=== PATIENT | female | born 1960 | race Caucasian/White ===

== ENCOUNTER 2018-11-20 16:24 | Emergency (ER) | payer MEDICAID ==
[~2018-11-20] VITALS: Ht 160 cm; Wt 81.4 kg
[2018-11-20 17:08] LABS: BASOPHILS # (AUTO) 0.1 X10'3 (0-0.2); BASOPHILS % (AUTO) 0.8 % (0-1); EOSINOPHILS # (AUTO) 0.5 X10'3 (0-0.9); HEMOGLOBIN 14.8 g/dl (12.0-16.0); LYMPHOCYTES # (AUTO) 1.3 X10'3 (1.1-4.8); MEAN CORPUSCULAR HGB CONC 33.7 g/dL (33.0-36.5); MEAN CORPUSCULAR VOLUME 86.1 FL (78-98); MEAN PLATELET VOLUME 7.6 FL (7.4-10.4); MONOCYTES # (AUTO) 0.6 X10'3 (0-0.9); MONOCYTES % (AUTO) 8.5 % (2-12); NEUTROPHILS # (AUTO) 4.4 X10'3 (1.8-7.7); NEUTROPHILS % (AUTO) 64.7 % (42-75); PLATELET COUNT 282 X10'3 (140-440); RED CELL DISTRIBUTION WIDTH 13.9 % (11.5-14.5); WHITE BLOOD COUNT 6.8 X10'3 (4.5-11.0)
--- NOTE | 2018-11-20 17:20 | NUR ---
[employer] OFFICER TARYN DEXTER LEFT PATIENT IN ROOM 20
[2018-11-20 17:21] LABS: ALANINE AMINOTRANSFERASE 39 U/L (12-78); ALBUMIN 4.3 G/DL (3.4-5.0); ALKALINE PHOSPHATASE 93 IU/L (46-116); ANION GAP 11 (8-16); ASPARTATE AMINO TRANSFERASE 20 U/L (10-37); BILIRUBIN,TOTAL 0.4 MG/DL (0.1-1.0); BLOOD UREA NITROGEN 17 MG/DL (7-18); BUN/CREATININE RATIO 19.3 (6.6-38.0); CALCIUM 10.1 MG/DL (8.5-10.1); CHLORIDE 96 MMOL/L (99-107); CREATININE 0.88 MG/DL (0.40-0.90); GLUCOSE 393 MG/DL (70-104); POTASSIUM 3.8 MMOL/L (3.5-5.1); SODIUM 137 MMOL/L (135-145); TOTAL CARBON DIOXIDE 29.6 MMOL/L (24-32); TOTAL PROTEIN 8.4 G/DL (6.4-8.2); eGFR 66 ML/MIN
[2018-11-20 17:30] LABS: ETHANOL < 0.010 GM/DL (0.0-0.010)
[2018-11-20 18:07] LABS: URINE AMPHETAMINE SCREEN NEGATIVE (Neg); URINE BARBITUATE SCREEN NEGATIVE (Neg); URINE BENZODIAZEPINES SCREEN NEGATIVE (Neg); URINE CANNABINOID SCREEN POSITIVE (Neg); URINE COCAINE SCREEN NEGATIVE (Neg); URINE METHADONE SCREEN NEGATIVE (Neg); URINE OPIATE SCREEN POSITIVE (Neg); URINE PHENCYCLIDINE SCREEN NEGATIVE (Neg)
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
--- NOTE | 2018-11-20 21:32 | NUR ---
md dr jamal metz in [place]
[2018-11-20] MEDS ORDERED: HYDR25TA4 PO (21:50)
[2018-11-20] MEDS ORDERED: LISI-600 PO (21:50)
[2018-11-20] MEDS ORDERED: IBUP-1986 PO (21:50)
[2018-11-20] MEDS ORDERED: METF-438 PO (21:50)
[2018-11-20] MEDS ORDERED: TIZA4TAB11 PO (21:50)
[2018-11-20] MEDS ORDERED: HYDR-4353 PO (22:00)
[2018-11-20] MEDS ORDERED: INSU100V11 SQ (22:00)
[2018-11-20] MEDS ORDERED: NPH,100V2 SQ (22:00)
[2018-11-20] MEDS ORDERED: CLON-514 PO (22:00)
[2018-11-20] MEDS ORDERED: DULO-31 PO (22:00)
--- NOTE | 2018-11-20 22:43 | NUR ---
PATIENT NO LONGER TAKES ELAVIL; STATES LAST PRESCRIBED ABOUT 4 YEARS AGO PER PATIENT
--- NOTE | 2018-11-20 22:54 | NUR ---
PATIENT AMBULATED SELF TO BATHROOM WITHOUT ASSIST ABOUT 30 FEET
--- NOTE | 2018-11-20 22:57 | NUR ---
SPOKE WITH WITH LANETTE PARRA
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
[2018-11-20 23:12] LABS: COLOR,URINE YELLOW (Yellow); GLUCOSE, URINE >=1000 mg/dl (Neg); KETONES,URINE TRACE mg/dl (Neg); LEUKOCYTE ESTERASE ,URINE NEGATIVE (Neg); NITRITES, URINE POSITIVE (Neg); OCCULT BLOOD,URINE NEGATIVE (Neg); PROTEIN,URINE NEGATIVE (Neg); UROBILINOGEN,URINE 0.2 E.U/dL (0.2-1.0)
[2018-11-20 23:17] LABS: UA COLLECTION TYPE CLN CATCH MIDSTREAM
[2018-11-20 23:18] LABS: BACTERIA,URINE 3+ /HPF (Neg); CLARITY,URINE SLIGHTLY CLOUDY (Clear); RBC,URINE NONE SEEN /HPF (0-2); SQUAMOUS EPITHELIAL CELL,UR FEW /LPF (FEW); WBC,URINE 0-4 /HPF (0-4)
[2018-11-20] MEDS ORDERED: MESSAGE TO PHARMACY PO ONE (23:40)
[2018-11-20] MEDS ORDERED: FOSFOMYCIN TROMETHAMINE 3 GM PACKET PO ONE (23:40)
[2018-11-20] MEDS ORDERED: dextrose ORAL solution 15 GM/59 ML bottle PO PRN ×2 (23:40)
[2018-11-20] MEDS ORDERED: glucagon, human recombinant 1mg kit SUBCUT PRN (23:40)
[2018-11-20] MEDS ORDERED: dextrose 50%-water 50ml dispensing syringe IV PRN ×2 (23:40)
--- NOTE | 2018-11-20 23:45 | NUR ---
PATIENT C/O LEFT SIDED CHEST CRAMPING RADIATING INTO SHOULDER, NOT BETTER OR WORSE WITH DEEP BREATHE, PATIENT STATES THAT SHE TAKES A MUSCLE RELAXER AND A NORCO WHEN THIS HAPPENS AT HOME, PATIENT DOES HAVE A "STRESS TEST" TO BE SCHEDULED BY HER CARDIOLGIST DR SIMS INFORMED, ORDERS PLACED, PATIENT CAN NOT TAKE ASPIRIN DUE TO SEVERE ALLERGY
--- NOTE | 2018-11-21 00:28 | NUR ---
REPORT TO SHAE MILES PATIENT IN ROOM 13
--- NOTE | 2018-11-21 01:14 | NUR ---
[employer] CALLED FOR POSSIBLE PLACEMENT, THEY WOULD LIKE HER PACKET FAXED TO THEM AFTER 3HR TROP COMES BACK NEGATIVE. THEY WILL PRESENT HER CASE TO THE PSYCH MD AT 0600 THIS MORNING.
[2018-11-21] MEDS: insulin Lispro (HumaLOG) vial - multi-dose SQ SCH ×3 (01:48→13:59)
[2018-11-21] MEDS: HYDROcodone/acetaminophen 10/325mg tab PO PRN ×3 (02:01→13:50)
--- NOTE | 2018-11-21 03:12 | NUR ---
PT IS MEDICALLY CLEARED AFTER TROPONIN WENT DOWN.
--- NOTE | 2018-11-21 04:12 | NUR ---
Med clearance and updated labs sent to [facility] as per [facility]'s request.
--- NOTE | 2018-11-21 06:00 | NUR ---
Moved from Main ER to Bed 20 in the Overflow area. Awake and loudly crying. States she is in "a lot of pain." States the pain is due to "degeneration in her left hip." Also sobbing "because I don't know if my granddaughter is all right." Feeling overwhelmed with grief and guilt at this time.
[2018-11-21] MEDS: ibuprofen tablet 400 MG TABLET PO PRN ×2 (06:23→15:35)
--- NOTE | 2018-11-21 06:23 | NUR ---
Asking for pain medication. Motrin 800mg. PO administered as ordered.
--- NOTE | 2018-11-21 06:45 | NUR ---
Accucheck performed. Blood sugar = 288. Patient's H1C = 10.6. Patient states, "I haven't been doing so good keeping track of my diabetes."
[2018-11-21] MEDS ORDERED: insulin Lispro (HumaLOG) vial - multi-dose SQ SCH ×2 (07:00)
[2018-11-21] MEDS: clonazePAM 1mg tablet PO PRN (07:30)
[2018-11-21] MEDS: lisinopril 20mg tablet PO SCH (07:31)
[2018-11-21] MEDS: HYDROchlorothiazide 25mg tablet PO SCH (07:32)
[2018-11-21] MEDS: duloxetine 30mg CAPSULE.DR PO SCH (07:32)
--- NOTE | 2018-11-21 08:00 | NUR ---
Resting quietly in bed. Served breakfast tray. Ate 100% of her meal. AM medications administered as ordered. [place] PO PRN administered for pain at this time.
[2018-11-21] MEDS: metFORMIN 500mg tablet PO SCH ×2 (08:10→20:36)
[2018-11-21] MEDS: tizanidine 4mg tablet PO SCH ×2 (08:10→20:00)
[2018-11-21] MEDS ORDERED: CEPH500C5 PO (08:32)
--- NOTE | 2018-11-21 08:44 | NUR ---
Humalog insulin 12 units administered SQ based upon [facility] diabetic protocol
[2018-11-21] MEDS ORDERED: cephalexin 250mg capsule PO ONE (08:45)
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
--- NOTE | 2018-11-21 11:10 | NUR ---
Call received from staff at [facility]. Questions asked about the stability of patient's blood sugar. Revealed to [facility] that patient's blood sugar is not stable at this time. Also, informed [facility] staff that patient must use a walker to ambulate as her gait is unsteady due to severe left hip pain. [facility] determined patient was not appropriate for care at their facility under the present circumstances.
--- NOTE | 2018-11-21 13:51 | NUR ---
PATIENT ATE 64 GRAMS OF CARBOHYDRATES, BLOOD SUGAR 157
--- NOTE | 2018-11-21 15:28 | NUR ---
Patient requesting Motrin for pain. Motrin 800 mg. given as ordered.
--- NOTE | 2018-11-21 17:47 | NUR ---
Sitting up at the side of the bed. Has been unable to rest this afternoon due to physical discomfort.
[2018-11-21] MEDS ORDERED: cyclobenzaprine 10mg tablet PO ONE (20:00)
[2018-11-21] MEDS ORDERED: HYDROcodone/acetaminophen 10/325mg tab PO ONE (20:00)
[2018-11-21] MEDS ORDERED: NPH, human insulin isophane inj. SQ SCH (21:00)
--- NOTE | 2018-11-21 22:08 | NUR ---
After sleeping for an hour, patient continues to complain of pain after recent norco 10 and flexeril were administered.
[2018-11-21] MEDS ORDERED: diphenhydrAMINE 25mg capsule PO ONE (22:50)
[2018-11-21] MEDS ORDERED: LORazepam 1 MG tablet PO ONE (22:50)
--- NOTE | 2018-11-22 01:24 | NUR ---
patient awoke and made numerous moaning sounds and she used her walked to go to the bathroom.
[2018-11-22] MEDS: HYDROcodone/acetaminophen 10/325mg tab PO PRN ×2 (03:52→12:42)
[2018-11-22] MEDS: clonazePAM 1mg tablet PO PRN (03:52)
--- NOTE | 2018-11-22 06:45 | NUR ---
Accucheck performed. Blood sugar = 183
--- NOTE | 2018-11-22 07:00 | NUR ---
Asking for pain medication. Motrin 800mg. PO administered as ordered.
[2018-11-22] MEDS: metFORMIN 500mg tablet PO SCH (07:59)
[2018-11-22] MEDS: duloxetine 30mg CAPSULE.DR PO SCH (07:59)
[2018-11-22] MEDS: tizanidine 4mg tablet PO SCH (08:00)
[2018-11-22] MEDS: HYDROchlorothiazide 25mg tablet PO SCH (08:00)
[2018-11-22] MEDS: lisinopril 20mg tablet PO SCH (08:00)
[2018-11-22] MEDS: ibuprofen tablet 400 MG TABLET PO PRN (08:01)
--- NOTE | 2018-11-22 08:30 | NUR ---
Resting quietly in bed. Served breakfast tray. Ate 100% of her meal. AM medications administered as ordered.
[2018-11-22] MEDS: insulin Lispro (HumaLOG) vial - multi-dose SQ SCH ×2 (08:52→13:38)
[2018-11-22] MEDS ORDERED: cephalexin 250mg capsule PO SCH (08:58)
[2018-11-22] MEDS ORDERED: cephalexin 500mg capsule PO SCH (09:04)
[2018-11-22] MEDS ORDERED: cephalexin 250mg capsule PO ONE (12:30)
--- NOTE | 2018-11-22 13:00 | NUR ---
Napped until lunchtime. Appears to be in less pain today. Given a walker to assist with ambulation.
--- NOTE | 2018-11-22 14:00 | NUR ---
Call received from Charge Nurse JD Loya @ [facility]. Patient has been accepted for care on this unit. Patient informed. Accepted information well.
--- NOTE | 2018-11-22 15:00 | NUR ---
Son here to visit. Sitting at bedside. Will take home all of mom's personal possessions as per inventory sheet.
[2018-11-22 15:46] VITALS: BP 110/72
== END 2018-11-22 15:52 ==
LOC: ER 16:25
DX: F32.9 Major depressive disorder, single episode, unspecified (principal); E11.9 Type 2 diabetes mellitus without complications; Z98.890 Other specified postprocedural states; Z88.8 Allergy status to other drugs, medicaments and biological substances
CPT/HCPCS: 36415; 71045; 80053; 80305; 80320; 81001; 82948; 83036; 84443; 84484; 85025; 87077; 87088; 87186; 93005; 96372; 99285; Q0163

== ENCOUNTER 2018-11-22 14:22 | Inpatient (IN) | payer MEDICAID ==
[~2018-11-22] VITALS: Ht 161.3 cm; Wt 82.9 kg
[~2018-11-22 14:22] MED LIST: CEPH500C5 PO; CLON-514 PO; DULO-31 PO; HYDR-4353 PO; HYDR25TA4 PO; IBUP-1986 PO; INSU100V11 SQ; LISI-600 PO; METF-438 PO; NPH,100V2 SQ; TIZA4TAB11 PO
[2018-11-22] MEDS ORDERED: magnesium hydroxide 30ml (MOM) UD suspension PO PRN (15:25)
[2018-11-22] MEDS ORDERED: mag hydrox/Alum hydrox/simeth 30ml oral suspension PO PRN (15:25)
[2018-11-22] MEDS ORDERED: loperamide 2mg capsule PO PRN (15:25)
[2018-11-22] MEDS ORDERED: acetaminophen 325mg tablet PO PRN ×2 (15:25)
[2018-11-22] MEDS ORDERED: hydrOXYzine 25 MG tablet PO PRN (15:25)
[2018-11-22] MEDS ORDERED: LORazepam 1 MG tablet PO PRN (15:25)
[2018-11-22] MEDS ORDERED: tuberculin, purif. prot. deriv. 5 units/0.1ml ID ONE (15:25)
--- NOTE | 2018-11-22 16:10 | NUR ---
ADMISSION NOTE: Patient admitted to [facility] from ER at 16:10. Patient gives history of taking out an antidepressant pill and sat in on table. Next thing she knew her granddaughter started falling asleep, she drove her to [facility]. and they flew her to [facility]. Sons were yelling at her. She drove to police station and said that she wanted to . Patient reports no plan. Pt. tearful during eval. Pt. with DMII with numbness of toes. History of depression with 1 prior [facility] ER stay. Chronic pain, right hip replacement. Insomnia.
[2018-11-22] MEDS ORDERED: dextrose ORAL solution 15 GM/59 ML bottle PO PRN ×2 (18:25)
[2018-11-22 19:55] VITALS: BP 90/52
[2018-11-22] MEDS: tizanidine 4mg tablet PO SCH (20:37)
[2018-11-22] MEDS: metFORMIN 500mg tablet PO SCH (20:37)
[2018-11-22] MEDS: NPH, human insulin isophane inj. SQ SCH (20:42)
[2018-11-22] MEDS: HYDROcodone/acetaminophen 10/325mg tab PO PRN (20:43)
[2018-11-22] MEDS: clonazePAM 1mg tablet PO PRN (20:55)
--- NOTE | 2018-11-23 02:21 | NUR ---
Nursing Progress Note:[] Legal hold:[]5150 Client on /involuntary status for DTS/DTO Report received from nurse with use of SBAR[].Shalini Why are they here:[].Patient admitted to [facility] from ER at 16:10. Patient gives history of taking out an antidepressant pill and sat in on table. Next thing she knew her granddaughter started falling asleep, she drove her to [facility]. and they flew her to [facility]. Sons were yelling at her. She drove to police station and said that she wanted to . Patient reports no plan. Pt. tearful during eval. Pt. with DMII with numbness of toes. History of depression with 1 prior [facility] ER stay. Chronic pain, right hip replacement. Insomnia. Assessment What has happened this shift: Pt was laying in bed at change of shift 1:1 assessment completed at bedside. Pt denies s/i, "im just sad not suicidal." states she felt suicidal and went to the police station after her children were yelling at her. Im sad my daughter wont talk to me now. Pt is tearful regarding her chronic pain. She states she got word that her granddaughter is now at home and doing better. Pt got up for evening snack. She was not given insulin AC w/dinner meal, BS 208 prior to snack. HS insulin given w/evening meds. S/I, H/I:denies A/VH: denies Sleep: sleeping well ADL's:[] independant Group attendance: no evening groups Were meds taken:yes Any med S/E none reported or observed Mental Status Exam Appearance: adequately groomed, wearing hospital scrubs non skid socks Eye contact: good Behavior: laying in bed, up for snacks, tearful c/o pain Speech: normal rate and rhythm Mood: labile, depressed crying Affect: constricted Thought process: linear Thought Content: states she is sad her daughter isnt talking to her. Cognition:a/ox4 Insight: poor Judgment: fair Interventions PRN's used: hydrocodone, klonopin Therapeutic interventions: 1:1 assessment, q15 min checks for safety, medication administration. Restraints/seclusion/emergency medication: none Justification of Continued Inpatient Treatment: interrupt current mh crisis, pt safety,
[2018-11-23] MEDS ORDERED: insulin Lispro (HumaLOG) vial - multi-dose SQ SCH ×2 (07:00)
[2018-11-23 07:34] LABS: CHOL/HDL RATIO 5.7 (0.00-4.99); CHOLESTEROL 251 MG/DL (0-200); HDL CHOLESTEROL 44 MG/DL (35-60); LDL CHOLESTEROL 177 MG/DL (50-100); TRIGLYCERIDES 138 MG/DL (20-135)
[2018-11-23 07:36] VITALS: BP 120/76
[2018-11-23] MEDS ORDERED: duloxetine 30mg CAPSULE.DR PO SCH (08:00)
[2018-11-23] MEDS: tizanidine 4mg tablet PO SCH ×2 (08:20→20:28)
[2018-11-23] MEDS: lisinopril 20mg tablet PO SCH (08:20)
[2018-11-23] MEDS: HYDROchlorothiazide 25mg tablet PO SCH (08:21)
[2018-11-23] MEDS: metFORMIN 500mg tablet PO SCH ×2 (08:21→20:28)
[2018-11-23] MEDS: HYDROcodone/acetaminophen 10/325mg tab PO PRN ×3 (08:22→22:24)
[2018-11-23] MEDS: insulin Lispro (HumaLOG) vial - multi-dose SQ SCH ×3 (09:38→18:33)
--- NOTE | 2018-11-23 16:18 | NUR ---
DM consult: Pt with A1c 10.6 will need DM ed prior to d/c. Pt currently with no H&P. Documented with 100% PO intake on CHO controlled diet meeting nutrient needs. [facility] 11/22. Will continue to follow. Recommendations: 1) Continue with CHO controlled diet 2) DM ed prior to d/c 3) Weekly wt Addendum: 11/23/18 at [address] Amended: Links added.
--- NOTE | 2018-11-23 17:04 | NUR ---
Nursing Progress Note: Legal hold: 5150 Client on /involuntary status for DTS/DTO Report received from nurse, Paloma with use of SBAR. Why are they here:Patient admitted to [facility] from ER at 16:10. Patient gives history of taking out an antidepressant pill and sat in on table. Next thing she knew her granddaughter started falling asleep, she drove her to [facility]. and they flew her to [facility]. Sons were yelling at her. She drove to police station and said that she wanted to . Patient reports no plan. Pt. with DMII with numbness of toes. History of depression with 1 prior [facility] ER stay. Chronic pain, right hip replacement. Insomnia. Assessment What has happened this shift: Received Pt in bed sleeping w/o distress at change of shift. Pt pleasant and cooperative during assessments and BS monitoring. Given med for pain in AM, as pt was crying and moaning r/t hip pain. Meds were effective along with rest. Took shower in late morning and stated she felt better.Depressed mood, but capable of a good range of affect and able to have moments of joking around. Attended meals and interacted with others appropriately. On level 2 for BS management and humolog given per protocol. She met with therapist in afternoon and became tearful. Tends toward isolating and staying in bed. S/I, H/I:denies A/VH: denies Sleep: sleeping well ADL's: independant Group attendance: yes Were meds taken:yes Any med S/E none reported or observed Mental Status Exam Appearance: adequately groomed, wearing hospital scrubs non skid socks Eye contact: good Behavior: laying in bed, up for snacks, tearful c/o pain Speech: normal rate and rhythm Mood: labile, depressed crying Affect: constricted Thought process: linear Thought Content: states she is sad her daughter isnt talking to her. Cognition:a/ox4 Insight: poor Judgment: fair Interventions PRN's used: hydrocodone Therapeutic interventions: 1:1 assessments, q15 min checks for safety, medication administration; therapeutic 1:1 conversations: maintaining a therapeutic milieu Restraints/seclusion/emergency medication: none Justification of Continued Inpatient Treatment: interrupt current mh crisis, pt safety,
[2018-11-23 20:00] VITALS: BP 116/71
[2018-11-23] MEDS: NPH, human insulin isophane inj. SQ SCH (20:21)
[2018-11-23] MEDS: cephalexin 500mg capsule PO SCH (20:28)
[2018-11-23] MEDS: atorvastatin 20mg tablet PO SCH (20:28)
[2018-11-23] MEDS: ibuprofen tablet 400 MG TABLET PO PRN (20:30)
[2018-11-23] MEDS: clonazePAM 1mg tablet PO PRN (20:30)
[2018-11-23] MEDS ORDERED: clonazePAM 1mg tablet PO PRN (21:45)
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
[2018-11-24] MEDS: HYDROcodone/acetaminophen 10/325mg tab PO PRN ×3 (04:28→21:09)
--- NOTE | 2018-11-24 04:28 | NUR ---
Nursing Note: Pt. awakens tearful with chronic pain in left hip, PRN [place] administered.
[2018-11-24 08:00] VITALS: BP 139/58
[2018-11-24] MEDS: metFORMIN 500mg tablet PO SCH ×2 (08:14→20:47)
[2018-11-24] MEDS: cephalexin 500mg capsule PO SCH ×2 (08:14→20:47)
[2018-11-24] MEDS: duloxetine 30mg CAPSULE.DR PO SCH (08:14)
[2018-11-24] MEDS: tizanidine 4mg tablet PO SCH ×2 (08:16→20:47)
[2018-11-24] MEDS: HYDROchlorothiazide 25mg tablet PO SCH (08:16)
[2018-11-24] MEDS: lisinopril 20mg tablet PO SCH (08:16)
[2018-11-24] MEDS: insulin Lispro (HumaLOG) vial - multi-dose SQ SCH ×3 (08:55→18:27)
--- NOTE | 2018-11-24 09:40 | NUR ---
DM consult: Pt with A1c 10.6 patient admitted with 5150 with SI and depression, she is not appropriate for DM education at this point in time. Will defer education. Documented with 100% PO intake on CHO controlled diet meeting nutrient needs. Will continue to follow. Recommendations: 1) Continue with CHO controlled diet 2) Weekly wt Addendum: 11/24/18 at [address] Amended: Links added.
--- NOTE | 2018-11-24 16:46 | NUR ---
NURSING PROGRESS NOTE: Legal hold: 5150 Client on /involuntary status for DTS/DTO Report received from nurse, JD Ferreira with use of SBAR. Why are they here: Patient gives history of taking out an antidepressant pill and sat in on table. Next thing she knew her granddaughter started falling asleep, she drove her granddaughter to [facility]. and they flew her to [facility]. Her sons were yelling at her which made her want to kill herself. Assessment What has happened this shift: Pt assessed in her bed. She reports pain in her hip and that she just received pain medicine and it has helped some. She shared the reason she is here denies SI at this time. She states her son-in-law is no longer mad at her so she is feeling much better. She is calm and cooperative throughout her physical and mental status exam. She carries of diagnosis of IDDM currently receiving coverage of [employer] on level #2. Slept in the afternoon after PM group. S/I, H/I:denies A/VH: denies Sleep: naps during shift ADL's: showered Group attendance: yes Were meds taken:yes Any med S/E none reported or observed Mental Status Exam Appearance: Showered, wearing hospital scrubs Eye contact: good Behavior: cooperative, smiling on and off throughout the day Speech: normal rate and rhythm Mood: Calm Affect: Thought process: linear Thought Content: states she is sad her daughter isn't talking to her. Cognition: A/Ox4 Insight: poor Judgment: fair Interventions PRN's used: Yes; [place] Therapeutic interventions: Provided active listening, maintained a safe and therapeutic environment, provided encouragement r/t ADL performance, provided medication education, maintained Q 15 min safety checks. Restraints/seclusion/emergency medication: none Justification of Continued Inpatient Treatment: Pt was admitted due to a mental health crisis related to an OD of Elavil by her 2 yr-old granddaughter love she left the pill on a table within the little girls reach. Due to her guilt and fears and adult family members yelling at her during the occurrence pt became suicidal. Her granddaughter has recovered and her family has forgiven her and today she states she is ready to go home. Pt denies SI.
[2018-11-24 20:00] VITALS: BP 123/76
[2018-11-24] MEDS: atorvastatin 20mg tablet PO SCH (20:47)
[2018-11-24] MEDS: NPH, human insulin isophane inj. SQ SCH (20:55)
[2018-11-25] MEDS: ibuprofen tablet 400 MG TABLET PO PRN (01:58)
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
[2018-11-25] MEDS: HYDROcodone/acetaminophen 10/325mg tab PO PRN ×2 (06:30→13:22)
[2018-11-25 08:00] VITALS: BP 123/69
[2018-11-25] MEDS: duloxetine 30mg CAPSULE.DR PO SCH (08:16)
[2018-11-25] MEDS: cephalexin 500mg capsule PO SCH (08:16)
[2018-11-25] MEDS: atorvastatin 20mg tablet PO SCH (08:16)
[2018-11-25] MEDS: HYDROchlorothiazide 25mg tablet PO SCH (08:16)
[2018-11-25] MEDS: metFORMIN 500mg tablet PO SCH (08:16)
[2018-11-25 08:17] VITALS: BP_SYST 123
[2018-11-25] MEDS: tizanidine 4mg tablet PO SCH (08:17)
[2018-11-25] MEDS: lisinopril 20mg tablet PO SCH (08:17)
[2018-11-25] MEDS: insulin Lispro (HumaLOG) vial - multi-dose SQ SCH ×2 (09:09→14:04)
[2018-11-25] MEDS ORDERED: HYDR-3686 PO (12:23)
[2018-11-25] MEDS ORDERED: CEPH500C5 PO (12:23)
[2018-11-25] MEDS ORDERED: DULO-31 PO (12:23)
--- NOTE | 2018-11-25 17:41 | NUR ---
Discharge Note: Pt discharge home with son at 1732. Staff down with pt and her son to the car. Discharge instructions reviewed with pt including f/u appt and medications and smoking cessation information/education/resources. Pt verbalized understanding and signed. Pt sent with prescriptions. All belongings including valuables and medications returned to the patient upon d/c. Pt stated she was happy to be going home and denies depression and suicidal thoughts.
[2018-11-25] MEDS ORDERED: lactobacillus rhamnosus 10,000 MMU CELLS/CAPSULE PO SCH (20:00)
== END 2018-11-25 17:32 | disposition home or self-care (01) | DRG 751 ==
LOC: ADULT MH 14:22
PROVIDERS: ADMIT Psychiatry & Neurology Psychiatry; ATTEND Psychiatry & Neurology Psychiatry
DX: F33.2 Major depressive disorder, recurrent severe without psychotic features (principal); R45.851 Suicidal ideations; E11.9 Type 2 diabetes mellitus without complications; E78.5 Hyperlipidemia, unspecified; I10 Essential (primary) hypertension; N39.0 Urinary tract infection, site not specified; Z88.0 Allergy status to penicillin; Z88.6 Allergy status to analgesic agent; Z83.3 Family history of diabetes mellitus
CPT/HCPCS: 36415; 80061; 82948; 87070; 99285; Q0177